=== PATIENT | female | born 1980 | race Caucasian/White ===

== ENCOUNTER 2019-11-08 11:37 | Emergency (ER) | payer BC ==
[2019-11-08] MEDS ORDERED: Dexamethasone 10 MG/ML SDV IVPUSH ONE (11:52)
[2019-11-08] MEDS ORDERED: LORazepam 2 MG/ML SDV IVPUSH ONE (11:52)
--- NOTE | 2019-11-08 11:57 | EDM.PDOC ---
ED HPI GENERAL MEDICAL PROBLEM - General Chief Complaint: Back Pain or Injury Stated Complaint: backpain Time Seen by Provider: 11/08/19 11:41 - History of Present Illness INITIAL COMMENTS - FREE TEXT/NARRATIVE: History of present illness: Patient presents with low back pain patient has a history of chronic low back pain and disc injury in the past but she developed increasing pain to yesterday she denies any precipitating events although she started a new workout routine and became sore after that. She states pains in the mid low back both sides does not radiate worsens with getting up and down better when she still she took ibuprofen at home but this is not made the pain go away. There is been no weakness no numbness no difficulty urinating no fever Review of systems: As per history of present illness and below otherwise all systems reviewed and negative. Past medical history: As per history of present illness and as reviewed below otherwise noncontributory. Surgical history: As per history of present illness and as reviewed below otherwise noncontributory. Social history: No reported history of drug or alcohol abuse. Family history: As per history of present illness and as reviewed below otherwise noncontributory. Physical exam: HEENT: Atraumatic, normocephalic, pupils reactive, negative for conjunctival pallor or scleral icterus, mucous membranes moist, throat clear, neck supple, nontender, trachea midline. Lungs: Clear to auscultation, breath sounds equal bilaterally, chest nontender. Heart: S1S2, regular, negative for clicks, rubs, or JVD. Abdomen: Soft, nondistended, nontender. Negative for masses or hepatosplenomegaly. Negative for costovertebral tenderness. Pelvis: Stable nontender. Genitourinary: Deferred. Rectal: Deferred. Extremities: Atraumatic, negative for cords or calf pain. Neurovascular unremarkable. Neuro: Awake, alert, oriented. Cranial nerves II through XII unremarkable. Cerebellum unremarkable. Motor and sensory unremarkable throughout. Exam nonfocal. No saddle anesthesia great toe strength 5 out of 5 bilaterally Back: There is no midline tenderness there is tenderness on the paraspinal musculature of the lumbar spine right greater than left. There is subsequently some spasm at these levels as well in the paraspinal musculature. Diagnostics: [] Therapeutics: [] Impression: Back pain [] Plan: Decadron and Ativan in the ED she will go home on prednisone gabapentin and Flexeril [] Definitive disposition and diagnosis as appropriate pending reevaluation and review of above. Lower back Pain Score (Numeric/FACES): 7 - Related Data Allergies Allergy/AdvReac Type Severity Reaction Status Date / Time amoxicillin [Amoxicillin] Allergy Swollen Verified 11/08/19 11:44 Tongue Penicillins Allergy Swollen Verified 11/08/19 11:44 Tongue phenobarbital Allergy Hives Verified 11/08/19 11:44 sulfamethoxazole Allergy Swollen Verified 11/08/19 11:44 [From Bactrim] Tongue sumatriptan [From Imitrex] Allergy Swollen Verified 11/08/19 11:44 Tongue sumatriptan succinate Allergy Swollen Verified 11/08/19 11:44 [From Imitrex] Tongue trimethoprim [From Bactrim] Allergy Swollen Verified 11/08/19 11:44 Tongue Home Meds: Home Meds Albuterol Sulfate [Ventolin Hfa] 1 - 2 puff INH ASDIRECTED PRN 01/24/14 [ History] Levothyroxine Sodium [Levoxyl] 75 mcg PO DAILY 01/24/14 [History] Cyclobenzaprine [Flexeril] 10 mg PO TID #30 tab 11/08/19 [Rx] Gabapentin 300 mg PO TID #30 solution 11/08/19 [Rx] predniSONE 60 mg PO WITHBREAKFAST 5 Days #15 tab 11/08/19 [Rx] Past Medical History HEENT History: Reports: None Cardiovascular History: Reports: None Respiratory History: Reports: Asthma Gastrointestinal History: Reports: None Genitourinary History: Reports: None [employer] History: Reports: None Musculoskeletal History: Reports: Back Pain, Chronic, Other (See Below) Other Musculoskeletal History: buldging disc Neurological History: Reports: Migraines Psychiatric History: Reports: None Endocrine/Metabolic History: Reports: Hypothyroidism Hematologic History: Reports: None Immunologic History: Reports: None Oncologic (Cancer) History: Reports: None Dermatologic History: Reports: None - Infectious Disease History Infectious Disease History: Reports: Chicken Pox - Past Surgical History Head Surgeries/Procedures: Reports: None HEENT Surgical History: Reports: None Cardiovascular Surgical History: Reports: None Respiratory Surgical History: Reports: None GI Surgical History: Reports: None Female Surgical History: Reports: None Endocrine Surgical History: Reports: None Neurological Surgical History: Reports: None Musculoskeletal Surgical History: Reports: None Oncologic Surgical History: Reports: None Dermatological Surgical History: Reports: None Social & Family History - Family History Family Medical History: Noncontributory - Tobacco Use Smoking Status *Q: Never Smoker - Caffeine Use Caffeine Use: Reports: None - Recreational Drug Use Recreational Drug Use: No ED ROS GENERAL - Review of Systems Review Of Systems: See Below ED EXAM, GENERAL - Physical Exam Exam: See Below Course - Vital Signs Text/Narrative:: There is no fever there is no cause to believe she has an epidural abscess and there is no evidence of cauda equina syndrome on physical exam. Patient had minimal improvement with Decadron and with Ativan we will add some morphine reassess the patient. Pain has improved but is not fully gone patient is more comfortable and resting. Discharge home with prednisone gabapentin and Flexeril. Follow-up with primary care Last Recorded V/S: Last Vital Signs Temp 36.4 C 11/08/19 11:40 Pulse 77 11/08/19 13:12 Resp 18 11/08/19 13:12 BP 107/58 L 11/08/19 13:12 Pulse Ox 98 11/08/19 13:12 - Orders/Labs/Meds Meds: Medications Discontinued Medications Generic Name Dose Route Start Last Admin Trade Name Odilonq PRN Reason Stop Dose Admin Dexamethasone 10 mg 11/08/19 11:52 11/08/19 12:06 Dexamethasone IVPUSH 11/08/19 11:53 10 mg ONETIME ONE Administration Lorazepam 1 mg 11/08/19 11:52 11/08/19 12:06 Ativan IVPUSH 11/08/19 11:53 1 mg ONETIME ONE Administration Morphine Sulfate 4 mg 11/08/19 12:56 11/08/19 13:13 Morphine IVPUSH 11/08/19 12:57 4 mg ONETIME ONE Administration Ondansetron HCl 4 mg 11/08/19 12:57 11/08/19 13:13 Zofran IVPUSH 11/08/19 12:58 4 mg ONETIME ONE Administration Departure - Departure Time of Disposition: 14:00 Disposition: Home, Self-Care 01 Condition: Good Clinical Impression: Back pain - Discharge Information *PRESCRIPTION DRUG MONITORING PROGRAM REVIEWED*: Not Applicable *COPY OF PRESCRIPTION DRUG MONITORING REPORT IN PATIENT DANNY: Not Applicable Prescriptions: Cyclobenzaprine [Flexeril] 10 mg PO TID #30 tab Gabapentin 300 mg PO TID #30 solution predniSONE 60 mg PO WITHBREAKFAST 5 Days #15 tab Instructions: Back Injury Prevention, [id number], Chronic Back Pain Referrals: PCP,None [Primary Care Provider] - Forms: ED Department Discharge Additional Instructions: The following information is given to patients seen in the emergency department who are being discharged to home. This information is to outline your options for follow-up care. We provide all patients seen in our emergency department with a follow-up referral. The need for follow-up, as well as the timing and circumstances, are variable depending upon the specifics of your emergency department visit. If you don't have a primary care physician on staff, we will provide you with a referral. We always advise you to contact your personal physician following an emergency department visit to inform them of the circumstance of the visit and for follow-up with them and/or the need for any referrals to a consulting specialist. The emergency department will also refer you to a specialist when appropriate. This referral assures that you have the opportunity for follow-up care with a specialist. All of these measure are taken in an effort to provide you with optimal care, which includes your follow-up. Under all circumstances we always encourage you to contact your private physician who remains a resource for coordinating your care. When calling for f ollow-up care, please make the office aware that this follow-up is from your recent emergency room visit. If for any reason you are refused follow-up, please contact the [facility] Emergency Department at and asked to speak to the emergency department charge nurse. [facility] - Primary Care [address] [place] [address] [id number] [address] [address] Sepsis Event Note (ED) - Evaluation Sepsis Screening Result: No Definite Risk - Focused Exam Vital Signs: Vital Signs Temp Pulse Resp BP Pulse Ox 11/08/19 13:12 77 18 107/58 L 98 11/08/19 11:40 36.4 C 69 18 102/51 L 100
[2019-11-08] MEDS ORDERED: Morphine 4 MG/ML Syringe IVPUSH ONE (12:56)
[2019-11-08] MEDS ORDERED: Ondansetron 4 MG/2 ML SDV IVPUSH ONE (12:57)
[2019-11-08 13:13] VITALS: BP 107/58
[2019-11-08 18:54] VITALS: PULSE 66
== END 2019-11-08 14:15 | disposition home or self-care (01) ==
LOC: MW.ED 11:37
DX: M54.5 Low back pain (principal); J45.909 Unspecified asthma, uncomplicated; E03.9 Hypothyroidism, unspecified; Z79.899 Other long term (current) drug therapy; Z88.1 Allergy status to other antibiotic agents; Z88.0 Allergy status to penicillin; Z88.2 Allergy status to sulfonamides; Z88.8 Allergy status to other drugs, medicaments and biological substances
CPT/HCPCS: 96374; 96375; 99284; J1100; J2060; J2270; J2405; 99283

== ENCOUNTER 2020-11-03 12:21 | Emergency (ER) | payer BC ==
--- NOTE | 2020-11-03 12:38 | PCM.EKG ---
#1 Interpretation Time: 12:37 EKG Interpretation Comments: 93, normal sinus rhythm, nonspecific ST/T findings
[2020-11-03] MEDS ORDERED: Ketorolac 30 MG/ML SDV IVPUSH ONE (12:58)
[2020-11-03] MEDS ORDERED: Sodium Chloride 0.9% 1,000 ML IV ONE (12:58)
[2020-11-03] MEDS ORDERED: HYDROmorphone 2 MG/ML Syringe IVPUSH ONE (12:59)
--- NOTE | 2020-11-03 14:07 | CT ---
Indication: Left flank pain Technique: Volumetric multidetector CT images of the abdomen and pelvis were without the administration of intravenous contrast. Comparison: None available. Findings: The lung bases are clear. There is a peripheral hypodensity seen within the right liver lobe on series 201, image 63 with additional subcentimeter hypodensities somewhat too small to characterize. The gallbladder is unremarkable without evidence of radiopaque calculus. There is no significant common biliary ductal dilatation or abrupt cut off. The spleen is normal in attenuation and size. The stomach and duodenum are grossly unremarkable. The pancreas is normal in attenuation without significant atrophy. The adrenal glands are unremarkable. There is no evidence of radiopaque calculus or hydronephrosis. There is moderate stool seen throughout the colon with mild to moderate distal colonic diverticulosis without evidence of diverticulitis. The appendix is not well visualized. There is no significant mesenteric, retroperitoneal, or pelvic sidewall lymph nodes. The aorta is nonaneurysmal. There is no significant atherosclerotic disease appreciated. There is prior hysterectomy with likely follicles within the left greater than right ovaries. There is no free fluid or free air. The anterior abdominal wall is intact without significant hernias. The lumbar vertebral body heights are grossly maintained with mild multi-level degenerative disc disease. There is no evidence of acute osseous abnormality. Impression: There is peripheral hypodensity seen within the right liver lobe on series 201 image 63 of uncertain etiology with additional hypodensities seen throughout the liver which could represent liver cystic changes. Follow up with contrast enhanced cross-sectional exam of the liver on an outpatient basis if there is persistent concern for characterisation. No evidence of hydronephrosis or obstructive radiopaque calculus. Please note that all CT scans at this facility use dose modulation, iterative reconstruction, and/or weight-based dosing when appropriate to reduce radiation dose to as low as reasonably achievable. Dictated by Chance Barrientos MD @ 11/03/2020 2:05:[address] Chance Barrientos @ Nov 03 2020 2:05PM
[2020-11-03 14:21] LABS: BLOOD UREA NITROGEN,BUN 10 mg/dL (7.0-18.0); CARBON DIOXIDE,CO2 27.7 mmol/L (21.0-32.0); CHLORIDE,CL 105 mmol/L (98-107); GLUCOSE RANDOM 76 mg/dL (74-106); LIPASE 88 U/L (73-393); POTASSIUM,K 4.1 mmol/L (3.5-5.1); SODIUM,NA 141 mmol/L (136-145)
--- NOTE | 2020-11-03 15:12 | CR ---
INDICATION: Left-sided chest pain. COMPARISON: Two-view chest 01/24/2014. TECHNIQUE: Portable AP chest. FINDINGS: Normal size cardiac silhouette. Clear lung montanez with no evidence of acute pneumonic infiltrates or CHF. No pneumothorax or pleural effusion. Impression: Negative portable AP chest. Dictated by Phil Miramontes MD @ 11/03/2020 3:10:[address] Phil Miramontes @ Nov 03 2020 3:10PM
--- NOTE | 2020-11-03 15:28 | EDM.PDOC ---
ED HPI GENERAL MEDICAL PROBLEM - General Chief Complaint: Chest Pain Stated Complaint: FLAnk PAIN Time Seen by Provider: 11/03/20 12:27 Source of Information: Reports: Patient History Limitations: Reports: No Limitations - History of Present Illness INITIAL COMMENTS - FREE TEXT/NARRATIVE: HISTORY AND PHYSICAL: History of present illness: Patient is a 40-year-old female who presents emergency room today with concern of left flank pain that radiates up into her chest and into her left lower abdomen starting yesterday but worsening today. Patient states that initially felt like a muscle spasm she was having a tightening sensation of her left flank area and went to the chiropractor and had an adjustment. Patient states that initially this helped yesterday but today the sensation is worse and she is having a hard time sitting still due to the pain. Patient states that she did take a dose of Flexeril earlier this morning which did not help her symptoms and a dose of ibuprofen last night which did not help her symptoms. Patient denies any trauma or injury to the area. Patient denies any other symptoms or concerns. Patient denies fever, chills, chest pain, shortness of breath, or cough. Denies headache, neck stiff ness, change in vision, syncope, or near syncope. Denies nausea, vomiting, diarrhea, constipation, or dysuria. Has not noted any blood in urine or stool. Patient has been eating and drinking appropriately. Review of systems: As per history of present illness and below otherwise all systems reviewed and negative. Past medical history: As per history of present illness and as reviewed below otherwise noncontributory. Surgical history: As per history of present illness and as reviewed below otherwise noncontributory. Social history: See social history for further information Family history: As per history of present illness and as reviewed below otherwise noncontributory. Physical exam: General: Patient is alert, oriented, and in no acute distress. Patient sitting on exam table rocking back and forth holding left flank area. Vitals stable and reviewed by me HEENT: Atraumatic, normocephalic, pupils equal and reactive bilaterally, negative for conjunctival pallor or scleral icterus, mucous membranes moist, TMs normal bilaterally, throat clear, neck supple, nontender, trachea midline. No drooling or trismus noted. No meningeal signs. No hot potato voice noted. Lungs: Clear to auscultation, breath sounds equal bilaterally, chest nontender. Heart: S1S2, regular rate and rhythm without overt murmur Abdomen: Patient does have tenderness to palpation over the left-sided flank area. Otherwise, soft, nondistended, nontender. Negative for masses or hepatosplenomegaly. Negative for costovertebral tenderness. Pelvis: Stable nontender. Genitourinary: Deferred. Rectal: Deferred. Skin: Intact, warm, dry. No lesions or rashes noted. Extremities: Atraumatic, negative for cords or calf pain. Neurovascular unremarkable. Neuro: Awake, alert, oriented. Cranial nerves II through XII unremarkable. Cerebellum unremarkable. Motor and sensory unremarkable throughout. Exam nonfocal. Notes: Patient is a 40-year-old otherwise healthy female who presents emergency room today with concern of left-sided flank pain that started yesterday but worsened today. Upon arrival to the ED, patient is sitting on exam table in swing back and forth holding her left flank area. Patient otherwise vitally stable and nontoxic on exam. Patient does have pain to palpation of her left side of flank area with negative CVA tenderness. Will obtain cardiac evaluation, basic lab work, and obtain abdominal pelvic CT without contrast concerning for possible ureterolithiasis. Patient does have a hysterectomy. See Dr. Major's dictation for specific EKG interpretation. However, normal sinus rhythm without STEMI. CBC mild derangements are unremarkable. CMP unremarkable. Troponin negative. Lipase within normal limits. Urinalysis is clear of infection. Chest x-ray shows negative portable AP chest. Abdominal pelvic CT scan without contrast shows there is a peripheral hypodensity seen within the right liver lobe on series 201 image 63 of uncertain etiology with additional hypodensities seen throughout the liver which could represent liver cystic changes. Follow-up with contrast-enhanced cross- sectional exam of the liver on an outpatient basis if there is persistent concern for characterization. No evidence of hydronephrosis or obstructive radiopaque calculus. All incidental findings of imaging today discussed with patient and the importance to have this followed up with a primary care provider Upon reevaluation of patient, she remains vitally stable and has improvement of her symptoms with therapeutics given today in the emergency room. On further discussion with patient, she does feel that there is possible underlying rib inflammation/muscle spasm related to her symptoms. Strict return precautions thoroughly discussed with patient. Discussed importance for follow-up with primary care provider. Voices understanding and is agreeable to plan of care. Denies any further questions or concerns at this time. Diagnostics: EKG, CBC, CMP, UA, chest x-ray, troponin, abdominal pelvic CT scan without contrast Therapeutics: Dilaudid, Toradol, normal saline Prescription: Tramadol, lidocaine patch Impression: Left flank pain Plan: 1. The medication you received today does cause drowsiness, so do not drive for the remaining day. 2. When resting please lay on a flat firm surface. Limit your mobility to prevent muscle stiffness. Get up to ambulate/move around/gentle stretching multiple times throughout the day. May alternate heat and ice to painful areas. 3. You can alternate ibuprofen and Tylenol as directed for pain and discomfort. Otherwise, take the prescribed tramadol as directed. Tramadol, this medication may cause drowsiness, so do not take it while driving or needing to be functioning outside of the home. Do not take your muscle relaxer, Flexeril, in addition with tramadol as they are both sedating medications as discussed. 4. Follow-up with your primary care provider as discussed. Return to the ED as needed and as discussed. Definitive disposition and diagnosis as appropriate pending reevaluation and review of above. Chest Pain Score (Numeric/FACES): 8 - Related Data Allergies Allergy/AdvReac Type Severity Reaction Status Date / Time amoxicillin [Amoxicillin] Allergy Swollen Verified 11/03/20 12:25 Tongue Penicillins Allergy Swollen Verified 11/03/20 12:25 Tongue phenobarbital Allergy Hives Verified 11/03/20 12:25 sulfamethoxazole Allergy Swollen Verified 11/03/20 12:25 [From Bactrim] Tongue sumatriptan [From Imitrex] Allergy Swollen Verified 11/03/20 12:25 Tongue sumatriptan succinate Allergy Swollen Verified 11/03/20 12:25 [From Imitrex] Tongue trimethoprim [From Bactrim] Allergy Swollen Verified 11/03/20 12:25 Tongue Home Meds: Home Meds Albuterol Sulfate [Ventolin Hfa] 1 - 2 puff INH ASDIRECTED PRN 01/24/14 [History] Levothyroxine Sodium [Levoxyl] 75 mcg PO DAILY 01/24/14 [History] Cyclobenzaprine [Flexeril] 10 mg PO TID #30 tab 11/08/19 [Rx] Lidocaine 5% [Lidoderm 5%] 1 patch TOP DAILY PRN #5 patch 11/03/20 [Rx] traMADol [Ultram] 50 mg PO Q6H PRN #15 tab 11/03/20 [Rx] Past Medical History HEENT History: Reports: None Cardiovascular History: Reports: None Respiratory History: Reports: Asthma Gastrointestinal History: Reports: None Genitourinary History: Reports: None [employer] History: Reports: None Musculoskeletal History: Reports: Back Pain, Chronic, Other (See Below) Other Musculoskeletal History: buldging disc Neurological History: Reports: Migraines Psychiatric History: Reports: None Endocrine/Metabolic History: Reports: Hypothyroidism Hematologic History: Reports: None Immunologic History: Reports: None Oncologic (Cancer) History: Reports: None Dermatologic History: Reports: None - Infectious Disease History Infectious Disease History: Reports: Chicken Pox - Past Surgical History Head Surgeries/Procedures: Reports: None HEENT Surgical History: Reports: None Cardiovascular Surgical History: Reports: None Respiratory Surgical History: Reports: None GI Surgical History: Reports: None Female Surgical History: Reports: None Endocrine Surgical History: Reports: None Neurological Surgical History: Reports: None Musculoskeletal Surgical History: Reports: None Oncologic Surgical History: Reports: None Dermatological Surgical History: Reports: None Social & Family History - Family History Family Medical History: No Pertinent Family History - Tobacco Use Tobacco Use Status *Q: Never Tobacco User - Caffeine Use Caffeine Use: Reports: None - Recreational Drug Use Recreational Drug Use: No ED ROS GENERAL - Review of Systems Review Of Systems: Comprehensive ROS is negative, except as noted in HPI. ED EXAM, GENERAL - Physical Exam Exam: See Below (See dictation) Course - Vital Signs Last Recorded V/S: Last Vital Signs Temp 97 F 11/03/20 12:25 Pulse 78 11/03/20 16:39 Resp 16 11/03/20 16:39 BP 112/75 11/03/20 16:39 Pulse Ox 100 11/03/20 16:39 - Orders/Labs/Meds Labs: Laboratory Tests 11/03/20 11/03/20 11/03/20 Range/Units 13:32 13:32 15:27 WBC 5.43 (4.0-11.0) K/uL RBC 4.35 (4.30-5.90) M/uL Hgb 14.0 (12.0-16.0) g/dL Hct 40.3 (36.0-46.0) % MCV 92.6 (80.0-98.0) fL MCH 32.2 H (27.0-32.0) pg MCHC 34.7 (31.0-37.0) g/dL RDW Std Deviation 43.9 (28.0-62.0) fl RDW Coeff of Mitchel 13 (11.0-15.0) % Plt Count 246 (150-400) K/uL MPV 8.80 (7.40-12.00) fL Neut % (Auto) 69.4 (48.0-80.0) % Lymph % (Auto) 22.3 (16.0-40.0) % Loving % (Auto) 7.0 (0.0-15.0) % Eos % (Auto) 0.9 (0.0-7.0) % Baso % (Auto) 0.4 (0.0-1.5) % Neut # (Auto) 3.8 (1.4-5.7) K/uL Lymph # (Auto) 1.2 (0.6-2.4) K/uL Loving # (Auto) 0.4 (0.0-0.8) K/uL Eos # (Auto) 0.1 (0.0-0.7) K/uL Baso # (Auto) 0.0 (0.0-0.1) K/uL Nucleated RBC % 0.0 /100WBC Nucleated RBCs # 0 K/uL Sodium 141 (136-145) mmol/L Potassium 4.1 (3.5-5.1) mmol/L Chloride 105 (98-107) mmol/L Carbon Dioxide 27.7 (21.0-32.0) mmol/L BUN 10 (7.0-18.0) mg/dL Creatinine 0.9 (0.6-1.0) mg/dL Est Cr Clr Drug Dosing 74.02 mL/min Estimated GFR (MDRD) > 60.0 ml/min Glucose 76 (74-106) mg/dL Calcium 9.3 (8.5-10.1) mg/dL Total Bilirubin 0.5 (0.2-1.0) mg/dL AST 19 (15-37) IU/L ALT 18 (14-63) IU/L Alkaline Phosphatase 53 (46-116) U/L Troponin I < 0.050 (0.000-0.056) ng/mL Total Protein 7.5 (6.4-8.2) g/dL Albumin 3.9 (3.4-5.0) g/dL Globulin 3.6 (2.6-4.0) g/dL Albumin/Globulin Ratio 1.1 (0.9-1.6) Lipase 88 (73-393) U/L Urine Color YELLOW Urine Appearance CLEAR Urine pH 6.0 (5.0-8.0) Ur Specific [place] 1.020 (1.001-1.035) Urine Protein NEGATIVE (NEGATIVE) mg/dL Urine Glucose (UA) NEGATIVE (NEGATIVE) mg/dL Urine Ketones NEGATIVE (NEGATIVE) mg/dL Urine Occult Blood NEGATIVE (NEGATIVE) Urine Nitrite NEGATIVE (NEGATIVE) Urine Bilirubin NEGATIVE (NEGATIVE) Urine Urobilinogen 0.2 (<2.0) EU/dL Ur Leukocyte Esterase NEGATIVE (NEGATIVE) Meds: Medications Discontinued Medications Generic Name Dose Route Start Last Admin Trade Name Odilonq PRN Reason Stop Dose Admin Hydromorphone HCl 0.5 mg 11/03/20 12:59 11/03/20 13:17 Hydromorphone 2 Mg/Ml Syringe IVPUSH 11/03/20 13:00 0.5 mg ONETIME ONE Administration Sodium Chloride 1,000 mls @ 999 mls/hr 11/03/20 12:58 11/03/20 13:18 Normal Saline IV 11/03/20 13:58 999 mls/hr BOLUS ONE Administration Ketorolac Tromethamine 30 mg 11/03/20 12:58 11/03/20 13:16 Ketorolac 30 Mg/Ml Sdv IVPUSH 11/03/20 12:59 30 mg ONETIME ONE Administration Departure - Departure Time of Disposition: 15:27 Disposition: Home, Self-Care 01 Clinical Impression: Left flank pain - Discharge Information Prescriptions: Lidocaine 5% [Lidoderm 5%] 1 patch TOP DAILY PRN #5 patch PRN Reason: Pain traMADol [Ultram] 50 mg PO Q6H PRN #15 tab PRN Reason: Pain (Severe 7-10) Instructions: Abdominal Pain, Adult Referrals: PCP,None [Primary Care Provider] - Forms: ED Department Discharge Additional Instructions: The following information is given to patients seen in the emergency department who are being discharged to home. This information is to outline your options for follow-up care. We provide all patients seen in our emergency department with a follow-up referral. The need for follow-up, as well as the timing and circumstances, are variable depending upon the specifics of your emergency department visit. If you don't have a primary care physician on staff, we will provide you with a referral. We always advise you to contact your personal physician following an emergency department visit to inform them of the circumstance of the visit and for follow-up with them and/or the need for any referrals to a consulting specialist. The emergency department will also refer you to a specialist when appropriate. This referral assures that you have the opportunity for follow-up care with a specialist. All of these measure are taken in an effort to provide you with optimal care, which includes your follow-up. Under all circumstances we always encourage you to contact your private physician who remains a resource for coordinating your care. When calling for follow-up care, please make the office aware that this follow-up is from your recent emergency room visit. If for any reason you are refused follow-up, please contact the [facility] Emergency Department at and asked to speak to the emergency department charge nurse. [facility] [address] [place] [id number] [place] [address] 1. The medication you received today does cause drowsiness, so do not drive for the remaining day. 2. When resting please lay on a flat firm surface. Limit your mobility to prevent muscle stiffness. Get up to ambulate/move around/gentle stretching mult iple times throughout the day. May alternate heat and ice to painful areas. 3. You can alternate ibuprofen and Tylenol as directed for pain and discomfort. Otherwise, take the prescribed tramadol as directed. Tramadol, this medication may cause drowsiness, so do not take it while driving or needing to be functioning outside of the home. Do not take your muscle relaxer, Flexeril, in addition with tramadol as they are both sedating medications as discussed. 4. Follow-up with your primary care provider as discussed. Return to the ED as needed and as discussed. Sepsis Event Note (ED) - Evaluation Sepsis Screening Result: No Definite Risk - Focused Exam Vital Signs: Vital Signs Temp Pulse Resp BP Pulse Ox 11/03/20 16:39 78 16 112/75 100 11/03/20 12:25 97 F 100 16 135/82 100
[2020-11-03 17:01] VITALS: BP 112/75; PULSE 78
== END 2020-11-03 16:39 | disposition home or self-care (01) ==
LOC: MW.ED 12:21
DX: R10.9 Unspecified abdominal pain (principal); E03.9 Hypothyroidism, unspecified; Z79.899 Other long term (current) drug therapy; Z88.0 Allergy status to penicillin; Z88.1 Allergy status to other antibiotic agents; Z88.8 Allergy status to other drugs, medicaments and biological substances
CPT/HCPCS: 36415; 71045; 74176; 80053; 81003; 83690; 84484; 85025; 93005; 96374; 96375; 99284; J1170; J1885; J7030

== ENCOUNTER 2021-12-24 13:00 | Emergency (ER) | payer BC ==
[2021-12-24] MEDS ORDERED: methylPREDNISolone Sodium Succinate 125 MG/2 ML SDV IM ONE (13:01)
[2021-12-24] MEDS ORDERED: Acetaminophen/oxyCODONE 325-5 MG Tab PO ONE (13:01)
== END 2021-12-24 14:58 ==
LOC: MW.ED 13:00
DX: M54.42 Lumbago with sciatica, left side (principal)
CPT/HCPCS: 96372; 99283; A9270; J2930

== ENCOUNTER 2022-03-07 16:13 | Emergency (ER) | payer OTHER, BC ==
[2022-03-07] MEDS ORDERED: Diazepam 5 MG Tab PO ONE (16:27)
[2022-03-07] MEDS ORDERED: Ketorolac 30 MG/ML SDV IM ONE (16:27)
[2022-03-07 17:34] VITALS: BP 128/82; PULSE 88
== END 2022-03-07 17:33 | disposition home or self-care (01) ==
LOC: MW.ED 16:13
DX: S13.4XXA Sprain of ligaments of cervical spine, initial encounter (principal); J45.909 Unspecified asthma, uncomplicated; E03.9 Hypothyroidism, unspecified; Z88.8 Allergy status to other drugs, medicaments and biological substances; Z88.0 Allergy status to penicillin; Z88.2 Allergy status to sulfonamides; Z79.899 Other long term (current) drug therapy; V89.2XXA Person injured in unspecified motor-vehicle accident, traffic, initial encounter; Y92.410 Unspecified street and highway as the place of occurrence of the external cause
CPT/HCPCS: 72125; 96372; 99284; A9270; J1885

== ENCOUNTER 2022-05-02 20:03 | Emergency (ER) | payer BC ==
[2022-05-02 20:46] VITALS: BP 126/88
[2022-05-02] MEDS ORDERED: valACYclovir 500 MG Tab PO ONE ×2 (21:59→22:00)
[2022-05-02] MEDS ORDERED: Gabapentin 300 MG Cap PO ONE (21:59)
[2022-05-02] MEDS ORDERED: Lidocaine 5% Oint 35.44 GM Tube TOP STA (22:01)
[2022-05-02 22:47] VITALS: PULSE 82
== END 2022-05-02 22:47 | disposition home or self-care (01) ==
LOC: MW.ED 20:03
DX: B02.9 Zoster without complications (principal); J45.909 Unspecified asthma, uncomplicated; E03.9 Hypothyroidism, unspecified; Z88.0 Allergy status to penicillin; Z88.2 Allergy status to sulfonamides; Z88.8 Allergy status to other drugs, medicaments and biological substances; Z79.899 Other long term (current) drug therapy
CPT/HCPCS: 99283; A9270-GY

== ENCOUNTER 2023-04-13 11:04 | Day surgery (SDC) | payer BC ==
[~2023-04-13 11:04] MED LIST: Lactated Ringers 1,000 ML IV SCH
[2023-04-13] MEDS ORDERED: propofoL 50 ML ONE (11:49)
[2023-04-13] MEDS ORDERED: Propofol 200 MG/20 ML SDV ONE (12:21)
[2023-04-13] MEDS ORDERED: Lactated Ringers 1,000 ML IV SCH (12:30)
[2023-04-13 14:15] VITALS: BP 106/70; PULSE 69
== END 2023-04-13 13:35 | disposition home or self-care (01) ==
LOC: MW.SDS 11:04
PROVIDERS: ATTEND Surgery
DX: K64.8 Other hemorrhoids (principal); K62.5 Hemorrhage of anus and rectum; F41.9 Anxiety disorder, unspecified; E03.9 Hypothyroidism, unspecified; J45.40 Moderate persistent asthma, uncomplicated; K21.9 Gastro-esophageal reflux disease without esophagitis; Z79.890 Hormone replacement therapy; Z79.899 Other long term (current) drug therapy; Z88.0 Allergy status to penicillin; Z88.2 Allergy status to sulfonamides; Z88.8 Allergy status to other drugs, medicaments and biological substances
CPT/HCPCS: 45378; J2704; J7120